=== PATIENT | male | born 1965 | race Asian ===

== ENCOUNTER 2020-02-28 15:00 | Emergency (ER) | payer OTHER ==
[~2020-02-28] VITALS: Ht 172.7 cm; Wt 79.4 kg
[2020-02-28 15:13] VITALS: BP 183/134
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
[2020-02-28] MEDS ORDERED: Bacitracin Oint UD TOPIC ONE (15:30)
[2020-02-28] MEDS ORDERED: Tetanus/Diptheria/Pertussis IM ONE (15:30)
--- NOTE | 2020-02-28 15:33 | NUR ---
ED Nurse Note: pt taken to CT on wheel with cobol application developer
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
--- NOTE | 2020-02-28 16:00 | NUR ---
ED Nurse Note: pa at bedside performing laceration repair
--- NOTE | 2020-02-28 16:00 | Diagnostic Imaging Report ---
Indications: Headache, head and facial trauma Technique: Spiral acquisitions obtained through the brain. Angled axial and coronal 5 x 5 mm slices were reconstructed. Total dose length product 1072 mGycm. CTDI vol(s) 53 mGy. Dose reduction achieved using automated exposure control Comparison: None. Findings: There is mild prominence of the ventricles and extra axial CSF spaces. There is extensive periventricular deep white matter low-attenuation. No acute intracranial hemorrhage or edema. No mass effect nor midline shift. Otherwise normal rhoades-white differentiation. There is minimal soft tissue irregularity in the left periorbital region.. There is minimal left maxillary sinus disease. The mastoids are clear. The calvarium is intact. Impression: Negative for acute intracranial bleed or mass effect. Fairly extensive low-attenuation of the periventricular deep white matter. Most likely on basis of chronic microvascular ischemic change, but quite striking for patient's age; possibly a demyelinating disease should also be considered. Evidence of minimal left periorbital soft tissue irregularity Minimal left maxillary sinus disease The CT scanner at [facility] is accredited by the [employer] and the scans are performed using protocols designed to limit radiation exposure to as low as reasonably achievable to attain images of sufficient resolution adequate for diagnostic evaluation.
[2020-02-28] MEDS ORDERED: Lidocaine 2% 20mg/ml/EPI 0.01mg/ml 20ml INJ ONE (16:15)
[2020-02-28 16:37] VITALS: BP 163/97
--- NOTE | 2020-02-28 16:37 | NUR ---
ER DISCHARGE NOTE: Patient is cleared to be discharged per ERMD, pt is aox4, on room air, with stable vital signs. pt was given dc and prescription instructions, pt was able to verbalize understanding, pt id band removed. pt is able to ambulate with steady gait. pt took all belongings.
[2020-02-28] MEDS ORDERED: TYLENOL EXTRA500 MG ORAL (16:38)
[2020-02-28] MEDS ORDERED: BACITRACIN15 GM TOPIC (16:38)
[2020-02-28] MEDS ORDERED: CHLORHEXIDINE473 ML MM (16:38)
== END 2020-02-28 16:37 | disposition home or self-care (01) ==
LOC: EMR 15:32
DX: S01.81XA Laceration without foreign body of other part of head, initial encounter (principal); S00.12XA Contusion of left eyelid and periocular area, initial encounter; S01.511A Laceration without foreign body of lip, initial encounter; S50.311A Abrasion of right elbow, initial encounter; S00.81XA Abrasion of other part of head, initial encounter; S00.31XA Abrasion of nose, initial encounter; S03.2XXA Dislocation of tooth, initial encounter; Y04.2XXA Assault by strike against or bumped into by another person, initial encounter; Z23 Encounter for immunization; Y92.9 Unspecified place or not applicable
CPT/HCPCS: 12011; 70450; 90471; 90715; Z7502; 99284

== ENCOUNTER 2020-04-04 19:10 | Emergency (ER) | payer OTHER ==
[~2020-04-04] VITALS: Ht 172.7 cm; Wt 77.1 kg
[~2020-04-04 19:10] MED LIST: BACITRACIN15 GM TOPIC; CHLORHEXIDINE473 ML MM; TYLENOL EXTRA500 MG ORAL
[2020-04-04] MEDS ORDERED: SIMVASTATIN40 MG ORAL (19:39)
[2020-04-04] MEDS ORDERED: PRINIVIL10 MG ORAL (19:39)
[2020-04-04] MEDS ORDERED: AMLODIPINE BESY10 MG ORAL (19:39)
[2020-04-04 19:40] VITALS: BP 148/106
--- NOTE | 2020-04-04 19:40 | NUR ---
ED Nurse Note: Pt walked into ED for c/o HTN. Pt states he does not regulary take his medication. Pt otherwise has no other complaints. Pt is aaox4, breathing is normal and unlabored, NAD. No fever, cough or SOB.
--- NOTE | 2020-04-04 19:40 | NUR ---
ED Nurse Note: Pt denies TAYLOR, N/V.
[2020-04-04 19:45] VITALS: BP 156/85
--- NOTE | 2020-04-04 19:52 | Emergency Room Report ---
History of Present Illness General Chief Complaint: Hypertension Source: Patient Present Illness HPI Patient is a 54-year-old male past medical history of hypertension who presents to the ER complaining of elevated blood pressure. Patient states that he supposed to be on amlodipine 10 mg daily as well as lisinopril 10 mg daily for his blood pressure. He states that sometimes he misses his doses. He denies having any symptoms. He denies any headache, blurry vision, chest pain, shortness of breath, abdominal pain or hematuria. He denies any focal weakness. Allergies: Coded Allergies: No Known Allergies (Unverified , 02/28/20) COVID-19 Screening Contact w/high risk pt: No Recent Travel to affected area: No Experienced COVID-19 symptoms?: No COVID-19 Testing performed AIR LIFT OPERATOR: No Patient History Past Medical History: HTN, other - HLD Reviewed Nursing Documentation: PMH: Agreed; PSxH: Agreed Nursing Documentation-PMH Hx Hypertension: Yes - HDL Review of Systems All Other Systems: negative except mentioned in HPI Physical Exam Vital Signs Date Time Temp Pulse Resp B/P (MAP) Pulse Ox O2 Delivery O2 Flow Rate FiO2 04/04/20 19:29 98.6 100 16 148/106 (120) 97 Room Air Sp02 EP Interpretation: reviewed, normal General Appearance: no apparent distress, alert, GCS 15, non-toxic Head: normocephalic, atraumatic Eyes: bilateral eye normal inspection, bilateral eye PERRL ENT: hearing grossly normal, normal pharynx, no angioedema, normal voice, other - Left eyebrow healing laceration with sutures in place Neck: full range of motion, supple/symm/no masses Respiratory: chest non-tender, lungs clear, normal breath sounds, speaking full sentences Cardiovascular #1: regular rate, rhythm, no edema Gastrointestinal: non tender, soft Rectal: deferred Genitourinary: normal inspection, no CVA tenderness Musculoskeletal: back normal, normal range of motion, no calf tenderness, gait/ station normal, non-tender Neurologic: alert, motor strength/tone normal, oriented x3, sensory intact, responsive, speech normal Psychiatric: no suicidal/homicidal ideation Skin: no rash Lymphatic: no adenopathy Medical Decision Making Diagnostic Impression: Primary Impression: Hypertension ER Course Patient does not have signs or symptoms of acute hypertensive emergency such as acute stroke, cardiac ischemia, pulmonary edema, encephalopathy, oliguria, severe abdominal pain, severe headache with focal neurologic deficits, and congestive heart failure. Based on the patients history I decided EKG, labs, and UA were not absolutely necessary at this visit. There is also not absolute indication for treating the patients hypertension since there is no evidence of end organ damage. Patient has uncontrolled blood pressure what will need to be managed by the patients primary doctor. Patient reports that the patient can make an appointment and can get followup with their primary doctor in a timely manner (less than 1 week). Last Vital Signs Date Time Temp Pulse Resp B/P (MAP) Pulse Ox O2 Delivery O2 Flow Rate FiO2 04/04/20 19:45 98.6 102 16 156/85 97 Room Air Disposition: HOME, SELF-CARE Condition: Stable Referrals: [facility] Zofia Maldonado. [facility] Patient Instructions: Hypertension, [id number] Additional Instructions: The patient was provided with discharge instructions, notified to follow-up with a primary care doctor and or specialist in the next 24-48 hours, and to return to the ED if they have worsening of their symptoms. Please note that this report is being documented using [email or web address] technology. This can lead to erroneous entry secondary to incorrect interpretation by the dictating instrument. Suzi Murphy M.D. Apr 04, 2020 19:52
[2020-04-04 19:55] VITALS: BP 149/86
--- NOTE | 2020-04-04 19:55 | NUR ---
ER DISCHARGE NOTE: Patient is cleared to be discharged per ERMD, pt is aox4, on room air, with stable vital signs. pt was given dc instructions, pt was able to verbalize understanding, pt id band removed. pt is able to ambulate with steady gait. pt took all belongings.
== END 2020-04-04 19:55 | disposition home or self-care (01) ==
LOC: EMR 19:50
DX: I10 Essential (primary) hypertension (principal); E78.5 Hyperlipidemia, unspecified; S01.112A Laceration without foreign body of left eyelid and periocular area, initial encounter; X58.XXXA Exposure to other specified factors, initial encounter; Y92.9 Unspecified place or not applicable
CPT/HCPCS: 99281